=== PATIENT | male | born 1995 | race Hispanic/Latino ===

== ENCOUNTER 2021-08-31 08:05 | Emergency (ER) | payer OTHER ==
[~2021-08-31] VITALS: Ht 170.2 cm; Wt 83.9 kg
[2021-08-31] MEDS ORDERED: LIDOCAINE HCL 2% VISCOUS 15 ML UDCUP ONE (08:49)
[2021-08-31] MEDS ORDERED: PRED5TAB PO (09:41)
[2021-08-31] MEDS ORDERED: CEPH500B PO (09:41)
[2021-08-31 09:48] VITALS: BP 129/78
[2021-08-31 09:54] LABS: APPEARANCE,URINE CLEAR (CLEAR); BILIRUBIN,URINE NEGATIVE (NEGATIVE); COLOR,URINE YELLOW (YELLOW); GLUCOSE, URINE (UA) >=1000 mg/dL (NEGATIVE); KETONES,URINE 15 mg/dL (NEGATIVE); LEUKOCYTE ESTERASE ,URINE NEGATIVE (NEGATIVE); NITRATE,URINE NEGATIVE (NEGATIVE); OCCULT BLOOD,URINE NEGATIVE (NEGATIVE); PROTEIN,URINE NEGATIVE (NEGATIVE); UROBILINOGEN,URINE 0.2 mg/dL (0.2-1.0)
[2021-08-31 10:57] LABS: BACTERIA,URINE Rare /HPF (None Seen); RBC,URINE 0-1 /HPF (0-1); SQUAMOUS EPITHELIAL CELL,UR Rare /HPF (0-2)
== END 2021-08-31 10:19 | disposition home or self-care (01) ==
LOC: EDH 08:05
DX: N48.1 Balanitis (principal); J45.909 Unspecified asthma, uncomplicated
CPT/HCPCS: 81001; 87486; 87797